=== PATIENT | female | born 1970 | race Caucasian/White ===

== ENCOUNTER → 2017-06-01 | Outpatient (CLI) | payer SELFPAY | LOC: COL.CARD 08:00 | DX: R55 Syncope and collapse (principal) ==

== ENCOUNTER 2019-05-02 12:45 | Outpatient (RCR) | payer BC | END 2019-05-16 | disposition home or self-care (01) | LOC: WSOT | DX: G56.03 Carpal tunnel syndrome, bilateral upper limbs (principal) ==

== ENCOUNTER → 2019-11-07 | Outpatient (CLI) | payer BC | LOC: COL.RAD 08:00 | DX: J32.0 Chronic maxillary sinusitis (principal) ==

== ENCOUNTER 2022-02-06 06:35 | Day surgery (SDC) | payer BC ==
[~2022-02-06] VITALS: Ht 170.2 cm; Wt 119.8 kg
[2022-02-06 07:13] VITALS: BP 135/91; PULSE 79; TEMP 97.1
[2022-02-06] MEDS ORDERED: PRIL40 PO (07:16)
[2022-02-06] MEDS ORDERED: SPIRIVA RE2.5 MCG/Ac IH (07:16)
[2022-02-06] MEDS ORDERED: NEURONTIN300 MG/CAP PO (07:16)
[2022-02-06] MEDS ORDERED: CELEXA 20MG20 MG/TAB PO (07:17)
[2022-02-06] MEDS ORDERED: EMGALITY120 MG/1 M SQ (07:17)
[2022-02-06] MEDS ORDERED: PROVENTIL0.09 MG/A1 IH (07:17)
[2022-02-06] MEDS ORDERED: RT ADVAIR 228 DISKUS IH (07:18)
[2022-02-06] MEDS ORDERED: UBRELVY50 MG PO (07:18)
[2022-02-06] MEDS ORDERED: PATANOL OPHTHALM5 ML OU (07:19)
[2022-02-06] MEDS ORDERED: SAXENDA6 MG/ML SQ (07:19)
[2022-02-06] MEDS ORDERED: CARDIZEM CD 12120 MG PO (07:20)
[2022-02-06] MEDS ORDERED: LOFIBRA160 MG PO (07:20)
[2022-02-06] MEDS ORDERED: TOPAMAX 25MG25 M1 PO (07:20)
[2022-02-06] MEDS ORDERED: CLARITIN 1010 MG/TAB PO (07:21)
[2022-02-06] MEDS ORDERED: SINGULAIR 110 MG/TAB PO (07:21)
[2022-02-06] MEDS ORDERED: EPIPEN 2-PAK1 MG/ML IM (07:22)
[2022-02-06] MEDS ORDERED: VITAMINC1000TA PO (07:23)
[2022-02-06] MEDS ORDERED: VITAMIN D31000 I1 PO (07:23)
[2022-02-06] MEDS ORDERED: B-12 500 MCG PO (07:23)
[2022-02-06] MEDS ORDERED: MAG-OX 400400 MG/TAB PO (07:24)
[2022-02-06 08:25] VITALS: BP 124/72; PULSE 78; TEMP 97.7
--- NOTE | 2022-02-06 08:25 | NUR ---
Pt returned via cart to bay 3. A&O. Ambulated with SBA to recliner in bay. Spouse present in room upon return. VSS-see flowsheet. Given warm blanket and apple juice per request. Call light in reach.
[2022-02-06 08:40] VITALS: BP 127/86; PULSE 75
[2022-02-06 08:55] VITALS: BP 129/82; PULSE 68
--- NOTE | 2022-02-06 09:00 | NUR ---
Pt tolerated oral intake. Dr Webster visited with pt and her spouse. VS remain stable. IV removed and pressure dressing applied. Discharge teaching completed, pt verbalized understanding. Taken via wheelchair to private vehicle for dc home with spouse driving.
== END 2022-02-06 09:00 | disposition home or self-care (01) ==
LOC: SDCO 06:35
DX: Z12.11 Encounter for screening for malignant neoplasm of colon (principal); D12.2 Benign neoplasm of ascending colon; K57.30 Diverticulosis of large intestine without perforation or abscess without bleeding; K64.1 Second degree hemorrhoids; K62.1 Rectal polyp; G47.33 Obstructive sleep apnea (adult) (pediatric); K21.9 Gastro-esophageal reflux disease without esophagitis; Z79.899 Other long term (current) drug therapy
CPT/HCPCS: J2704; J7030

== ENCOUNTER 2022-02-20 11:04 | Day surgery (SDC) | payer BC ==
[~2022-02-20] VITALS: Ht 170.2 cm; Wt 119.2 kg
[~2022-02-20 11:04] MED LIST: B-12 500 MCG PO; CARDIZEM CD 12120 MG PO; CELEXA 20MG20 MG/TAB PO; CLARITIN 1010 MG/TAB PO; EMGALITY120 MG/1 M SQ; EPIPEN 2-PAK1 MG/ML IM; LOFIBRA160 MG PO; MAG-OX 400400 MG/TAB PO; NEURONTIN300 MG/CAP PO; PATANOL OPHTHALM5 ML OU; PRIL40 PO; PROVENTIL0.09 MG/A1 IH; RT ADVAIR 228 DISKUS IH; SAXENDA6 MG/ML SQ; SINGULAIR 110 MG/TAB PO; SPIRIVA RE2.5 MCG/Ac IH; TOPAMAX 25MG25 M1 PO; UBRELVY50 MG PO; VITAMIN D31000 I1 PO; VITAMINC1000TA PO
[2022-02-20 13:12] VITALS: BP 114/83; PULSE 84; TEMP 96.5
[2022-02-20 14:45] VITALS: BP 121/85; PULSE 71; TEMP 96.9
[2022-02-20 15:00] VITALS: BP 133/91; PULSE 72
[2022-02-20 15:15] VITALS: BP 130/80; PULSE 72
--- NOTE | 2022-02-20 15:19 | NUR ---
1445 Pt returns from endo procedure via cart and RN assist to [facility]. Pt ambulates from cart to recliner with RN assist. Monitors on and alarms set. Call light within reach. Report received from MARIAH Jean Baptiste. Pt alert and oriented. Pt requests Pepsi. Pt denies any pain or nausea. Pt's present in room. 1450 Pt taking food and drink well. No complications noted. 1515 Discharge instructions given to pt and pt's . All questions answered to their satisfaction. Handed to pt are a thank you card and discharge information. 1519 Pt transferred out of the hospital via wheelchair and MARIAH Burgos assist, to private vehicle driven by pt's .
[2022-02-20 16:31] VITALS: BP 124/71; PULSE 69
== END 2022-02-20 15:19 | disposition home or self-care (01) ==
LOC: SDCO 11:04
DX: A63.0 Anogenital (venereal) warts (principal); K64.9 Unspecified hemorrhoids
CPT/HCPCS: J2704; J7120

== ENCOUNTER → 2023-02-10 | Outpatient (CLI) | payer BC ==
[~2023-02-10] MED LIST changes: +NATURAL IRON65 MG PO
== END ==
LOC: MHCPAIN 10:34
DX: M54.2 Cervicalgia (principal); M47.812 Spondylosis without myelopathy or radiculopathy, cervical region; M50.30 Other cervical disc degeneration, unspecified cervical region; M62.838 Other muscle spasm
CPT/HCPCS: G0463

== ENCOUNTER 2023-02-25 09:00 | Outpatient (RCR) | payer BC | END 2023-02-27 | disposition home or self-care (01) | LOC: WSPT | DX: M54.2 Cervicalgia (principal) ==

== ENCOUNTER → 2023-03-05 | Outpatient (CLI) | payer SELFPAY | LOC: WSPT 16:21 | DX: M54.2 Cervicalgia (principal); M25.519 Pain in unspecified shoulder ==

== ENCOUNTER → 2023-03-12 | Outpatient (CLI) | payer BC | LOC: COL.RAD 13:35 | DX: M19.011 Primary osteoarthritis, right shoulder (principal) ==

== ENCOUNTER → 2023-05-18 | Outpatient (CLI) | payer BC | LOC: MHCPAIN 13:51 | DX: M54.2 Cervicalgia (principal); M79.18 Myalgia, other site; L25.9 Unspecified contact dermatitis, unspecified cause | CPT/HCPCS: G0463 ==

== ENCOUNTER → 2023-06-08 | Outpatient (CLI) | payer BC | LOC: MHCPAIN 15:04 | DX: M54.2 Cervicalgia (principal); M47.812 Spondylosis without myelopathy or radiculopathy, cervical region; M62.838 Other muscle spasm; M25.511 Pain in right shoulder | CPT/HCPCS: G0463 ==

== ENCOUNTER → 2023-10-07 | Outpatient (CLI) | payer BC | LOC: MHCPAIN 10:00 | DX: M54.2 Cervicalgia (principal); M79.18 Myalgia, other site; M25.561 Pain in right knee; R20.0 Anesthesia of skin | CPT/HCPCS: G0463 ==

== ENCOUNTER → 2023-10-15 | Outpatient (CLI) | payer BC | LOC: COL.RAD 16:22 | DX: M17.11 Unilateral primary osteoarthritis, right knee (principal) ==

== ENCOUNTER → 2023-10-20 | Outpatient (CLI) | payer BC ==
[~2023-10-20] MED LIST changes: +Lidocaine PF 1% (10 MG/ML) 5 ML VIAL ONE; +Triamcinolone 40 MG/ML 1 ML VIAL ONE
== END ==
LOC: MHCPAIN 13:00
DX: M54.6 Pain in thoracic spine (principal); M54.2 Cervicalgia
CPT/HCPCS: J0665; J3301

== ENCOUNTER → 2024-01-20 | Outpatient (CLI) | payer BC ==
[~2024-01-20] MED LIST changes: -Lidocaine PF 1% (10 MG/ML) 5 ML VIAL ONE; -Triamcinolone 40 MG/ML 1 ML VIAL ONE
== END ==
LOC: MHCPAIN 10:19
DX: M54.2 Cervicalgia (principal); M79.18 Myalgia, other site; G44.86 Cervicogenic headache; G56.01 Carpal tunnel syndrome, right upper limb
CPT/HCPCS: G0463

== ENCOUNTER → 2024-02-23 | Outpatient (CLI) | payer BC | LOC: MHCPAIN 08:26 | DX: M79.18 Myalgia, other site (principal); M47.812 Spondylosis without myelopathy or radiculopathy, cervical region; M48.02 Spinal stenosis, cervical region; G44.86 Cervicogenic headache | CPT/HCPCS: G0463 ==

== ENCOUNTER → 2024-03-20 | Outpatient (CLI) | payer BC ==
[~2024-03-20] MED LIST changes: +Atropine 1 MG/10 ML SYRINGE IV ONE; +Glycopyrrolate 0.2 MG/ML 1 ML VIAL ONE; +ePHEDrine 50 MG/10 ML VIAL IV ONE
== END ==
LOC: MHCPAIN 08:05
DX: M47.812 Spondylosis without myelopathy or radiculopathy, cervical region (principal); M54.2 Cervicalgia
CPT/HCPCS: J0461; J0665

== ENCOUNTER → 2024-03-28 | Outpatient (CLI) | payer BC ==
[~2024-03-28] MED LIST changes: -Atropine 1 MG/10 ML SYRINGE IV ONE; -B-12 500 MCG PO; +CARDIZEM 60MG T60 MG PO; -CELEXA 20MG20 MG/TAB PO; +CELEXA40 MG PO; +CYANOCOBAL1000 MCG/1 SQ; -Glycopyrrolate 0.2 MG/ML 1 ML VIAL ONE; +LAMICTAL 100MG100 MG PO; +LASIX 20MG TABL20 MG PO; +MULTI VITAMINS1 TAB PO; +NEURONTIN100 MG/CAP PO; +UBRELVY100 MG PO; -UBRELVY50 MG PO; +ZANAFLEX 4MG TAB4 MG PO; +ZEPBOUND2.5 MG/0.5 SQ; -ePHEDrine 50 MG/10 ML VIAL IV ONE
== END ==
LOC: MHCPAIN 08:41
DX: M79.18 Myalgia, other site (principal); M54.2 Cervicalgia; M47.812 Spondylosis without myelopathy or radiculopathy, cervical region; M48.02 Spinal stenosis, cervical region
CPT/HCPCS: G0463

== ENCOUNTER 2024-03-30 08:06 | Inpatient (IN) | payer BC ==
[~2024-03-30] VITALS: Ht 165.1 cm; Wt 87.1 kg
[2024-03-30] VITALS (18 sets, daily range): BP systolic 83–150; BP diastolic 48–94; PULSE 73–112; TEMP 98.3–102.5
[~2024-03-30 08:06] MED LIST changes: -CARDIZEM 60MG T60 MG PO; -LAMICTAL 100MG100 MG PO; -LASIX 20MG TABL20 MG PO; -MULTI VITAMINS1 TAB PO; -NEURONTIN100 MG/CAP PO; -ZANAFLEX 4MG TAB4 MG PO; -ZEPBOUND2.5 MG/0.5 SQ
[2024-03-30] MEDS ORDERED: LR 1,000 ML IV ONE (08:30)
[2024-03-30] MEDS ORDERED: Ondansetron 4 MG/2 ML VIAL IV ONE (08:30)
[2024-03-30 08:37] LABS: URINE APPEARANCE TURBID (CLEAR/HAZY); URINE BLOOD 3+ (NEGATIVE); URINE COLOR YELLOW (YELLOW); URINE GLUCOSE NEGATIVE (NEGATIVE); URINE KETONE NEGATIVE (NEGATIVE); URINE NITRATE POSITIVE (NEGATIVE); URINE PROTEIN(semi-quant) 3+ (NEGATIVE)
[2024-03-30 08:49] LABS: BASO % 0.3 % (0.0-2.0); EOS % 0.1 % (0.0-4.0); GRAN # 10.4 K/mm3 (1.4-6.5); GRAN % 81.7 % (42.2-75.2); HEMATOCRIT 39.6 % (37.0-47.0); HEMOGLOBIN 13.5 g/dl (12.5-16.0); LYMPH # 1.1 K/mm3 (1.2-3.4); LYMPH % 8.7 % (20.0-51.0); MEAN CELL VOLUME 92 fl (80.0-100.0); MEAN CORPUSCULAR HEMOGLOBIN 31 pg (27-31); MEAN CORPUSCULAR HGB CONC 34 g/dl (33.0-37.0); MEAN PLATELET VOLUME 9.3 fl (7.4-10.4); MONO # 1.1 K/mm3 (0.1-0.6); MONO % 8.9 % (1.7-9.3); PLATELET COUNT 226 K/mm3 (130-400); REDCELL DISTRIBUTION WIDTH-CV 12.7 % (11.5-14.5)
[2024-03-30] MEDS ORDERED: Morphine 4 MG/ML VIAL IV ONE (09:00)
[2024-03-30 09:07] LABS: ALBUMIN 3.6 g/dL (3.5-5.0); BILIRUBIN,TOTAL 0.5 mg/dL (0.2-1.2); C-REACTIVE PROTEIN 1.18 mg/dL (0.00-0.50); CALCIUM 9.5 mg/dL (8.4-10.2); CREATININE, serum 0.81 mg/dL (0.57-1.11); POTASSIUM 3.6 mEq/L (3.5-4.5)
[2024-03-30 09:10] LABS: COLLECTION METHOD CLEAN CATCH
[2024-03-30] MEDS ORDERED: NS 100 ML IV SCH (09:46)
[2024-03-30] MEDS ORDERED: Iohexol 300 - 100 ML VIAL IV ONE (09:46)
[2024-03-30] MEDS ORDERED: cefTRIAXone 2 G in Water For Injection,Sterile 20 ML IV ONE (10:15)
[2024-03-30] MEDS ORDERED: ZEPBOUND2.5 MG/0.5 SQ (10:16)
[2024-03-30] MEDS ORDERED: LAMICTAL 100MG100 MG PO (10:16)
[2024-03-30] MEDS ORDERED: CARDIZEM 60MG T60 MG PO (10:22)
[2024-03-30] MEDS ORDERED: NEURONTIN100 MG/CAP PO (10:29)
[2024-03-30] MEDS ORDERED: ZANAFLEX 4MG TAB4 MG PO (10:31)
[2024-03-30] MEDS ORDERED: LASIX 20MG TABL20 MG PO (10:32)
[2024-03-30] MEDS ORDERED: MULTI VITAMINS1 TAB PO (10:34)
[2024-03-30] MEDS ORDERED: LR 1,000 ML IV SCH (11:00)
[2024-03-30] MEDS ORDERED: Naloxone 0.4 MG/ML VIAL IV PRN (11:30)
[2024-03-30] MEDS ORDERED: NS 1,000 ML IV SCH (11:30)
[2024-03-30] MEDS ORDERED: D5W 1,000 ML IV SCH (11:30)
[2024-03-30] MEDS ORDERED: Morphine PCA 1 MG/ML 30 ML SYRINGE IV SCH (11:30)
[2024-03-30] MEDS ORDERED: Ondansetron 4 MG/2 ML VIAL IV PRN ×3 (11:30→16:00)
--- NOTE | 2024-03-30 12:00 | NUR ---
Pt arrived to surgical floor by wheelchair from ED. Report received from ED RN Apoorva. Pt had one episode of emesis after arriving to surgical floor. Admission assessment and intake completed. Home medications, allergies, and pharmacy reviewed. INT to Lt AC, CDI. FOLLOW UP SPECIALIST pump intiated with Charge nurse [place]. VSS with elevated temp at 100.9. After intiation of FOLLOW UP SPECIALIST pump pt started having complaints of nausea with emesis. Dr. Knapp notified by phone and gave TORB for Scopolamine patch 1 mg now for nausea. Oriented pt to room, call light, and bathroom. Pt rates pain 8/10 on Rt flank side. Pt has no request at this time. Call light within reach.
[2024-03-30] MEDS ORDERED: Scopolamine 1 MG Delivered 3-Day PATCH TD ONE (12:30)
--- NOTE | 2024-03-30 12:46 | NUR ---
Dr. Knapp notified by phone of elevated temperature of 101.7, no new orders received at this time.
--- NOTE | 2024-03-30 13:38 | NUR ---
Dr. Knapp notified by phone of elevated temperature of 102.5. TORB once time dose of 1000mg Tylenol PO now.
[2024-03-30] MEDS ORDERED: Ketorolac 15 MG/ML VIAL IV ONE (13:45)
[2024-03-30] MEDS ORDERED: Acetaminophen 500 MG TAB PO ONE (14:00)
--- NOTE | 2024-03-30 15:11 | NUR ---
Social work student met with patient this afternoon. Pt lives in [place] with her , Antonio (p# [phone]). PCP is [facility] and pharmacy is [facility]. Pt does not have a DPOA-HC and denied one at this time but was agreeable to her being the NOK. Pt is independent with ADLS and does not use any DMEs. Pt transports themself to appointments and if is unable to, her does. Pt explained she "occasionally" has trouble affording medications. SW asked more about this and Pt explained it can be challening to afford medications "between paychecks." SW gave Pt a GoodRx card. Pt expressed the use of vocher medication cards she has received for other medications as well. Discharge plan: Home.
[2024-03-30] MEDS ORDERED: HYDROmorphone 1 MG/1 ML SYRINGE [PACU/SDC ONLY] IV PRN (16:00)
[2024-03-30] MEDS ORDERED: Meperidine 50 MG/ML 1 ML VIAL IV PRN (16:00)
[2024-03-30] MEDS ORDERED: Morphine 2 MG/1 ML VIAL [PACU/SDC ONLY] IV PRN (16:00)
[2024-03-30] MEDS ORDERED: fentaNYL 50 MCG/ML 2 ML VIAL ONE (16:02)
[2024-03-30] MEDS ORDERED: NS 10 ML IV ONE (16:02)
[2024-03-30] MEDS ORDERED: Lidocaine PF 2% (20 MG/ML) 5 ML VIAL ONE (16:03)
--- NOTE | 2024-03-30 16:21 | NUR ---
Pt down to OR by bed, report called to OR nurse Sahara.
[2024-03-30] MEDS ORDERED: Hyoscyamine 0.125 MG Sublingual TAB SL PRN (17:15)
[2024-03-30] MEDS ORDERED: oxyCODONE/Acetaminophen 5-325 MG TAB PO PRN (17:15)
[2024-03-30] MEDS ORDERED: Lidocaine 2% (20 MG/ML) 20 ML UROJET UR ONE (17:20)
--- NOTE | 2024-03-30 18:00 | NUR ---
Report received from WORKFORCE PLANNERMARIAH Beach.
--- NOTE | 2024-03-30 18:12 | NUR ---
Pt arrived to surgical floor from PACU. Pt awake in bed, A&O x4. Pt denies pain at this time rating 0/10. Post op vital signs stable. Santo catheter in place draining pink tinged urine. Pt has no request at this time. Call light within reach.
[2024-03-30] MEDS ORDERED: Sennosides/Docusate 8.6-50 MG TAB PO SCH (21:00)
--- NOTE | 2024-03-30 22:10 | NUR ---
PATIENT RESTING IN BED WATCHING TV. REPORTING 5/10 PAIN IN HER RIGHT LOWER QUADRANT. DENIES ANY NAUSEA, SHORTNESS OF BREATH, CHEST PAIN. SHE IS FEELING THE URGE TO URINATE DESPITE HAVING HER ABEL CATHETER IN PLACE. CALL LIGHT IS WITHIN REACH. BED IS LOCKED AND IN LOW POSITION WITH BED ALARM ON.
[2024-03-31] VITALS (13 sets, daily range): BP systolic 93–135; BP diastolic 60–79; PULSE 67–95; TEMP 98.7–100.2
--- NOTE | 2024-03-31 03:41 | NUR ---
PATIENT CONTINUES TO FEEL PRESSURE IN ABDOMIN AND URGE TO VOID. ABEL IS DRAINING, HOWEVER WILL PERFORM BLADDER SCAN.
[2024-03-31] MEDS ORDERED: Acetaminophen 500 MG TAB PO PRN (07:30)
--- NOTE | 2024-03-31 07:45 | NUR ---
Patient laying in bed, A&Ox4. VSS. IV CDI, fluids infusing. Complaints of a headache, this nurse will notify the doctor. Santo intact. Call light within reach
--- NOTE | 2024-03-31 13:05 | NUR ---
THIS NURSE IS TAKING OVER CARE. REPORT RECEIVED FROM MARIAH YAN. AGREE WITH SHIFT ASSESSMENT COMPLETED THIS AM. PATIENT CRYSTAL IN RECLINER EATING LUNCH EXPRESSES NO NEEDS AT THIS TIME. CALL LIGHT IN REACH.
[2024-04-01] VITALS (8 sets, daily range): BP systolic 106–125; BP diastolic 65–75; PULSE 70–79; TEMP 70–99.7
--- NOTE | 2024-04-01 07:37 | NUR ---
Patient sleeping, easily awakened with verbal command. A&Ox4. VSS. IV CDI. Denies pain and discomfort. Call light within reach
--- NOTE | 2024-04-01 13:36 | NUR ---
Data: Patient accepted spiritual care visit offered during Health Plan Manager rounds. Life review focused on Patient's family. Assessment: Patient remains positive; maintains a spiritual life outside the churh. Plan of Care: Health Plan Manager provided supportive listening and prayer. Chaplains will be available as needed/requested while Patient is admitted to this hospital. Patient accepted a bible.
--- NOTE | 2024-04-01 18:17 | NUR ---
Discharge paperwork reviewed with the patient and . Patient verbalized an understanding to follow doctors orders. IV removed, tip intact. Gauze and coban applied. Patient ambulated independently to ER entrance with personal belongings. No further needs expressed.
[2024-04-18] MEDS ORDERED: [UNRECOGNIZED DRUG - REMARK] (10:31)
[2024-04-18] MEDS ORDERED: CALCIUM CITRAT200 M2 (10:32)
[2024-04-18] MEDS ORDERED: BACTRIM 400 MG-1 TAB PO (10:32)
[2024-04-18] MEDS ORDERED: NORCO 325 MG-51 TAB PO (10:32)
[2024-04-18] MEDS ORDERED: COLACE 100100 MG/CAP PO (10:33)
[2024-04-18] MEDS ORDERED: PRIL40 PO (10:33)
[2024-04-18] MEDS ORDERED: MIRALAX PA17 GM/Dose PO (10:34)
== END 2024-04-01 18:18 | disposition home or self-care (01) | DRG 661 ==
LOC: COL.ER 08:06 → SURG 10:53
PROVIDERS: Family Medicine; ADMIT Urology
PROC: 0T768DZ Dilation of Right Ureter with Intraluminal Device, Via Natural or Artificial Opening Endoscopic (ICD-10-PCS; principal; 2024-03-30 17:45)
DX: N13.6 Pyonephrosis (principal); B96.20 Unspecified Escherichia coli [E. coli] as the cause of diseases classified elsewhere; I10 Essential (primary) hypertension; E78.5 Hyperlipidemia, unspecified; F32.A Depression, unspecified; G43.909 Migraine, unspecified, not intractable, without status migrainosus; G62.9 Polyneuropathy, unspecified
CPT/HCPCS: A4314; C1769; C2617; J0690; J0696; J1956; J2270; J2405; J2704; J3010; J7030; J7070; J7120; Q3014; Q9967